=== PATIENT | female | born 1970 | race Native Hawaiian/Other Pacific Islander ===

== ENCOUNTER 2016-12-08 13:17 | Outpatient (CLI) | payer OTHER | END 2016-12-08 20:00 | disposition home or self-care (01) | LOC: RAD 13:17 | DX: M54.89 Other dorsalgia (principal) ==

== ENCOUNTER 2017-03-01 09:56 | Emergency (ER) | payer OTHER ==
[~2017-03-01] VITALS: Ht 147.3 cm; Wt 68.0 kg
== END 2017-03-01 10:19 | disposition home or self-care (01) ==
LOC: ED 09:56
DX: M54.9 Dorsalgia, unspecified (principal)
CPT/HCPCS: 99281

== ENCOUNTER 2017-08-29 08:41 | Emergency (ER) | payer OTHER ==
[~2017-08-29] VITALS: Ht 144.8 cm; Wt 61.2 kg
[2017-08-29] MEDS ORDERED: HYDROCHLOROT50 MG PO (08:57)
[2017-08-29] MEDS ORDERED: SERT50TA PO (08:57)
[2017-08-29 09:08] LABS: PLATELET COUNT 167 K/uL (152-353)
[2017-08-29 09:35] VITALS: BP 129/85; TEMP 97.8
== END 2017-08-29 09:36 | disposition home or self-care (01) ==
LOC: ED 08:41
DX: R05 Cough (principal); B34.9 Viral infection, unspecified
CPT/HCPCS: 36415; 85027; 99283

== ENCOUNTER 2019-12-27 17:26 | Emergency (ER) | payer OTHER ==
[~2019-12-27] VITALS: Ht 144.8 cm; Wt 72.6 kg
[~2019-12-27 17:26] MED LIST: HYDROCHLOROT50 MG PO; SERT50TA PO
[2019-12-27 19:08] VITALS: BP 128/83; TEMP 98.2
== END 2019-12-27 19:08 | disposition home or self-care (01) ==
LOC: ED 17:26
DX: L25.9 Unspecified contact dermatitis, unspecified cause (principal); L29.8 Other pruritus
CPT/HCPCS: 96372; 99283; J2930